=== PATIENT | female | born 1965 | race Caucasian/White ===

== ENCOUNTER 2019-11-19 19:21 | Emergency (ER) | payer SELFPAY ==
[~2019-11-19] VITALS: Ht 165.1 cm; Wt 56.7 kg
[2019-11-19 19:40] VITALS: BP 107/52
--- NOTE | 2019-11-19 19:43 | NUR ---
TO LOBBY A/W BED AMBULATORY
--- NOTE | 2019-11-19 22:23 | NUR ---
PT AMBULATED TO BED 12 WITH SPOUSE
[2019-11-19 22:48] VITALS: BP 113/85
--- NOTE | 2019-11-19 22:48 | NUR ---
Patient seen and discharged by Dr. Sosa. She states relief. No SOB/Dyspnea. 0/10 pand and v/s stable. Written and verbal after care instructions given and explained. Patient alert, oriented and verbalized understanding of instructions. Ambulatory with steady gait. All questions addressed prior to discharge. ID band removed. Patient advised to follow up with PMD and when to return to ER. Rx of Promethazine with Codeine given. Patient educated on indication of medication including possible reaction and side effects. Opportunity to ask questions provided and answered.
== END 2019-11-19 22:48 | disposition home or self-care (01) ==
LOC: MED 19:21
DX: J06.9 Acute upper respiratory infection, unspecified (principal); J02.9 Acute pharyngitis, unspecified
CPT/HCPCS: 87804; 99283